=== PATIENT | male | born 1955 | race Caucasian/White ===

== ENCOUNTER → 2020-11-21 | Outpatient (CLI) | payer SELFPAY | LOC: M LABSMTC 10:05 | PROVIDERS: ATTEND Pediatrics | DX: Z20.828 Contact with and (suspected) exposure to other viral communicable diseases (principal) ==

== ENCOUNTER → 2023-02-13 | Outpatient (REF) | payer MEDICARE, BC ==
[~2023-02-13] MED LIST: CLOP75TA2 PO; LISI5TAB11 PO; MELO15TA28 PO; NITR0.4S14 SL; PANT40TA29 PO; SIMV40TA20 PO; TOPR25TA PO
[2023-02-13 18:59] LABS: APPEARANCE, URINE CLEAR (CLEAR); BACTERIA, URINE AUTO NEGATIVE (NEGATIVE); BILIRUBIN, URINE AUTO NEGATIVE (NEGATIVE); BLOOD, URINE BLOOD NEGATIVE (NEGATIVE); COLOR, URINE YELLOW (YELLOW); GLUCOSE, URINE (UA) AUTO NEGATIVE (NEGATIVE); KETONE, URINE AUTO NEGATIVE (NEGATIVE); LEUKOCYTE ESTERASE, URINE AUTO NEGATIVE (NEGATIVE); NITRITE, URINE AUTO NEGATIVE (NEGATIVE); PROTEIN, URINE AUTO NEGATIVE (NEGATIVE); RBC, URINE AUTO 0 /HPF (0-3); SPECIFIC GRAVITY URINE AUTO 1.024 (1.002-1.035); SQUAMOUS EPITHELIAL CELL UR AU 0 /HPF (0-6); WBC, URINE AUTO 1 /HPF (0-3)
== END ==
LOC: M SMT 18:19
PROVIDERS: ATTEND Urology
DX: N28.89 Other specified disorders of kidney and ureter (principal)

== ENCOUNTER → 2023-12-02 | Outpatient (CLI) | payer MEDICARE ==
[~2023-12-02] MED LIST changes: +ISOVUE-370 76% 100ML VIAL ONE
== END ==
LOC: M PLAIMG 11:03
PROVIDERS: ATTEND Urology
DX: N28.89 Other specified disorders of kidney and ureter (principal)
CPT/HCPCS: 74178; Q9967

== ENCOUNTER 2024-01-21 15:49 | Emergency (ER) | payer MEDICARE ==
[~2024-01-21] VITALS: Ht 177.8 cm; Wt 72.9 kg
[~2024-01-21 15:49] MED LIST changes: -ISOVUE-370 76% 100ML VIAL ONE
[2024-01-21 18:18] LABS: BASO % 0.3 % (0.0-1.0); EOS # 0.1 10^3/uL (0.0-0.5); EOS % 0.8 % (0.0-3.0); HEMATOCRIT 38.8 % (42.0-52.0); HEMOGLOBIN 13.7 g/dl (13.5-17.5); LYMPH # 1.5 10^3/uL (1.5-5.0); LYMPH % 25.9 % (24.0-44.0); MEAN CORPUSCULAR HEMOGLOBIN 34.9 pg (27.0-33.0); MEAN CORPUSCULAR HGB CONC 35.3 g/dl (32.0-36.5); MEAN CORPUSCULAR VOLUME 98.7 fl (80.0-96.0); MONO # 0.5 10^3/uL (0.0-0.8); MONO % 8.6 % (2.0-8.0); NEUTROPHILS # 3.8 10^3/uL (1.5-8.5); NEUTROPHILS % 64.1 % (36.0-66.0); PLATELET COUNT, AUTOMATED 142 10^3/uL (150-450); RED BLOOD COUNT 3.93 10^6/uL (4.30-6.10); WHITE BLOOD COUNT 5.9 10^3/uL (4.0-10.0)
[2024-01-21 18:23] LABS: ALBUMIN 3.7 G/DL (3.2-5.2); ALKALINE PHOSPHATASE 50 U/L (46-116); ALT/SGPT 25 U/L (7.0-40); AST/SGOT 38 U/L (<34); BILIRUBIN,DIRECT 0.1 MG/DL (<0.4); BILIRUBIN,TOTAL 0.5 MG/DL (0.3-1.2); BLOOD UREA NITROGEN 17 MG/DL (9-23); CALCIUM LEVEL 8.8 MG/DL (8.3-10.6); CARBON DIOXIDE LEVEL 26 MMOL/L (20-31); CHLORIDE LEVEL 110 MMOL/L (98-107); CK-MB VALUE MASS < 1.0 NG/ML (<3.6); CPK CREATINE PHOSPHOKINASE 74 U/L (46-171); CREATININE FOR GFR 0.86 MG/DL (0.70-1.30); GLOMERULAR FILTRATION RATE > 60.0 (>42); GLUCOSE, FASTING 87 MG/DL (74-106); LIPASE 32 U/L (12-53); MB/CK RELATIVE INDEX 1.35 (< OR =4); POTASSIUM SERUM 5.1 MMOL/L (3.5-5.1); SODIUM LEVEL 140 MMOL/L (136-145); TOTAL PROTEIN 6.3 G/DL (5.7-8.2)
[2024-01-21] MEDS ORDERED: ISOVUE-370 76% 100ML VIAL As Ordered ONE (18:34)
[2024-01-21 19:28] LABS: CK-MB VALUE MASS < 1.0 NG/ML (<3.6)
[2024-01-21 19:29] LABS: CPK CREATINE PHOSPHOKINASE 43 U/L (46-171); MB/CK RELATIVE INDEX 2.32 (< OR =4)
[2024-01-21] MEDS ORDERED: AMOX875T2 PO (20:25)
[2024-01-21] MEDS: AUGMENTIN 875 MG TAB PO ONE (20:28)
[2024-01-21 20:29] VITALS: BP 127/64; O2SAT 95
[2024-01-21 20:41] VITALS: TEMP 98.2
[2024-01-21 21:01] LABS: VITAMIN B12 LEVEL 317 PG/ML (211-911)
== END 2024-01-21 20:42 | disposition home or self-care (01) ==
LOC: M ED 15:49
DX: R42 Dizziness and giddiness (principal); K57.92 Diverticulitis of intestine, part unspecified, without perforation or abscess without bleeding; R00.1 Bradycardia, unspecified; I25.2 Old myocardial infarction; I25.119 Atherosclerotic heart disease of native coronary artery with unspecified angina pectoris; I10 Essential (primary) hypertension; F17.210 Nicotine dependence, cigarettes, uncomplicated
CPT/HCPCS: 36415; 70450; 70496; 70498; 71046; 74177; 80048; 80076; 82525; 82550; 82553; 82607; 83690; 84425; 84484; 85025; 93005; 93041; 99285; Q9967

== ENCOUNTER 2024-08-06 08:22 | Day surgery (SDC) | payer MEDICARE ==
[~2024-08-06] VITALS: Ht 177.8 cm; Wt 70.3 kg
[~2024-08-06 08:22] MED LIST changes: +AMOX875T2 PO; +EQL50TAB2 PO; +METO1TAB32 PO; +MIDAZOLAM INJ 2MG/2ML VIAL As Ordered ONE; +PHENYLEPHRINE 10% OPHTH SOL 5ML OS PRN; +TOPI25TA10 PO; +fentaNYL 100 MCG/2 ML INJECTION As Ordered ONE
[2024-08-06] MEDS: LIDOCAINE 3.5 % 1ML OPHTH TOPICAL GEL OU ONE (09:36)
[2024-08-06] MEDS: ATROPINE SULFATE 1% OPHTH SOLN 2ML BTL OS SCH (09:36)
[2024-08-06] MEDS: OFLOXACIN 0.3 % (OCUFLOX) OPTH SOL 5ML OS ONE (09:36)
[2024-08-06] MEDS: TROPICAMIDE 1% OPHTH SOLN 15ML OS SCH (09:36)
[2024-08-06] MEDS: PHENYLEPHRINE 2.5% OPHTH SOL 2ML OS SCH (09:36)
[2024-08-06] MEDS: CEFUROXIME 1MG/0.1ML INTRACAMERAL INJ As Ordered ONE (10:57)
[2024-08-06] MEDS: LIDOCAINE 1% SDV 5ML VIAL As Ordered ONE (10:57)
[2024-08-06] MEDS: BSS IRRIG/VANCO(10MG)/TOBRA(5MG)/EPINEPH(1:1000-0.5CC)500ML BAG-ORONLY As Ordered ONE (10:57)
[2024-08-06 11:08] VITALS: BP 101/60; TEMP 97.9; O2SAT 96
== END 2024-08-06 11:19 | disposition home or self-care (01) ==
LOC: M SDC 08:22
PROVIDERS: ATTEND Ophthalmology
DX: H25.12 Age-related nuclear cataract, left eye (principal); I10 Essential (primary) hypertension; E78.00 Pure hypercholesterolemia, unspecified; I25.2 Old myocardial infarction; F17.210 Nicotine dependence, cigarettes, uncomplicated; Z79.899 Other long term (current) drug therapy; Z79.02 Long term (current) use of antithrombotics/antiplatelets
CPT/HCPCS: 66984; J0697; J2250; J3010; V2632

== ENCOUNTER 2024-09-03 08:21 | Day surgery (SDC) | payer MEDICARE ==
[~2024-09-03] VITALS: Ht 177.8 cm; Wt 70.9 kg
[~2024-09-03 08:21] MED LIST changes: +BSS IRRIG/VANCO(10MG)/TOBRA(5MG)/EPINEPH(1:1000-0.5CC)500ML BAG-ORONLY ONE; -MIDAZOLAM INJ 2MG/2ML VIAL As Ordered ONE; +PHENYLEPHRINE 10% OPHTH SOL 5ML OD PRN; -PHENYLEPHRINE 10% OPHTH SOL 5ML OS PRN; -fentaNYL 100 MCG/2 ML INJECTION As Ordered ONE; +fentaNYL 100 MCG/2 ML INJECTION ONE
[2024-09-03] MEDS: OFLOXACIN 0.3 % (OCUFLOX) OPTH SOL 5ML OD ONE (09:10)
[2024-09-03] MEDS: TROPICAMIDE 1% OPHTH SOLN 15ML OD SCH (09:14)
[2024-09-03] MEDS: PHENYLEPHRINE 2.5% OPHTH SOL 2ML OD SCH (09:14)
[2024-09-03] MEDS: LIDOCAINE 3.5 % 1ML OPHTH TOPICAL GEL OU ONE (09:14)
[2024-09-03] MEDS: ATROPINE SULFATE 1% OPHTH SOLN 2ML BTL OD SCH (09:14)
[2024-09-03] MEDS ORDERED: PROVISC 10 MG/ML 0.85ML SYRINGE ONE (09:49)
[2024-09-03] MEDS: LIDOCAINE 1% SDV 5ML VIAL As Ordered ONE (09:50)
[2024-09-03] MEDS: CEFUROXIME 1MG/0.1ML INTRACAMERAL INJ As Ordered ONE (09:50)
[2024-09-03] MEDS: PROVISC 10 MG/ML 0.85ML SYRINGE As Ordered ONE (09:54)
[2024-09-03 10:10] VITALS: BP 110/66; TEMP 97.7; O2SAT 100
[2024-09-03] MEDS ORDERED: CEFUROXIME 1MG/0.1ML INTRACAMERAL INJ ONE (10:22)
[2024-09-03] MEDS ORDERED: LIDOCAINE 1% SDV 5ML VIAL ONE (10:22)
== END 2024-09-03 10:16 | disposition home or self-care (01) ==
LOC: M SDC 08:21
PROVIDERS: ATTEND Ophthalmology
DX: H25.11 Age-related nuclear cataract, right eye (principal); I25.2 Old myocardial infarction; Z79.899 Other long term (current) drug therapy; Z98.42 Cataract extraction status, left eye; F17.210 Nicotine dependence, cigarettes, uncomplicated
CPT/HCPCS: 66984; A4649; J0697; J3010; V2632